=== PATIENT | female | born 1985 | race Caucasian/White ===

== ENCOUNTER 2024-08-21 05:27 | Inpatient (IN) ==
[2024-08-21] MEDS: Lactated Ringers 1000 ml BAG 1,000 ML IV ONE ×2 (05:57→20:25)
[2024-08-21 06:18] LABS: ABS Lymphocytes 2.6 10^3/uL (1.0-4.8); ABS Monocytes 0.8 10^3/uL (0.0-0.9); ABS Neutrophils 8.8 10^3/uL (1.5-7.6); Eosinophil % 0.4 %; Hematocrit 38.2 % (35-45); Hemoglobin 13.2 g/dL (11.5-14.3); Lymphocyte % 21.3 %; Mean Corpuscular Hemoglobin 32.2 pg (27-33); Mean Corpuscular Hgb Conc 34.4 g/dL (31-36); Mean Corpuscular Volume 93.5 fL (80-97); Mean Platelet Volume 8.6 fL (7.5-11.2); Platelet Count 300 10^3/uL (150-450); Red Blood Count 4.09 10^6/uL (3.63-4.92); Red Cell Distribution Width 13.9 % (12-17); White Blood Count 12.3 10^3/uL (3.8-11.8)
[2024-08-21] MEDS ORDERED: Sodium Citrate/Citric Acid LIQ 15 ML UDC PO PRN (06:57)
[2024-08-21] MEDS ORDERED: Phenylephrine 40 mcg/mL 10mL (400mcg) SYRINGE IV PUSH PRN ×2 (06:57)
[2024-08-21] MEDS: Oxytocin 10 UNITS/ML 1 ML VIAL IM ONE (09:12)
[2024-08-21] MEDS: Oxytocin in LR 20,000 MILLI.UNIT/1,000 ML BAG IV SCH (09:15)
[2024-08-21] MEDS: Lidocaine 1% VIAL 10 MG/ML 30 ML VIAL INJ PRN (09:23)
[2024-08-21] MEDS ORDERED: Glycerin ADULT 2.4 gm SUPP PR PRN (09:56)
[2024-08-21] MEDS ORDERED: Lactated Ringers 1000 ml BAG 1,000 ML IV SCH (10:00)
[2024-08-21] MEDS: Witch Hazel PAD JAR TOPICAL PRN (10:55)
[2024-08-21] MEDS: Dibucaine 1% OINT 28.35 GM TUBE PR PRN (10:55)
[2024-08-21 12:48] LABS: Urine Benzodiazepine Screen None Detected (None Detect); Urine Cannabinoids Screen None Detected (None Detect); Urine Opiates Screen None Detected (None Detect)
[2024-08-21] MEDS: Lactated Ringers 1000 ml BAG 1,000 ML IV SCH ×2 (20:25)
[2024-08-21] MEDS: Bupivacaine 0.25% SDV PF 10 ML VIAL INJ ONE (20:25)
[2024-08-21] MEDS: Lidocaine 1% VIAL 10 MG/ML 30 ML VIAL ONE (20:25)
[2024-08-21] MEDS: Oxytocin in LR 20,000 MILLI.UNIT/1,000 ML BAG IV ONE (20:25)
[2024-08-21] MEDS: Buffered Lidocaine 1% SYRIN 1 ml INTRADERM ONE (20:26)
[2024-08-22 07:10] LABS: ABS Monocytes 0.6 10^3/uL (0.0-0.9); ABS Neutrophils 8.7 10^3/uL (1.5-7.6); ABS Nucleated RBC 0.01 10^3/ul; Eosinophil % 0.4 %; Hematocrit 32.8 % (35-45); Hemoglobin 11.3 g/dL (11.5-14.3); Lymphocyte % 17.3 %; Mean Corpuscular Hemoglobin 32.5 pg (27-33); Mean Corpuscular Hgb Conc 34.4 g/dL (31-36); Mean Corpuscular Volume 94.5 fL (80-97); Mean Platelet Volume 8.4 fL (7.5-11.2); Nucleated Red Blood Cells % 0.1 %/100WBC (0.0-0.8); Platelet Count 258 10^3/uL (150-450); Red Blood Count 3.47 10^6/uL (3.63-4.92); Red Cell Distribution Width 14.1 % (12-17); White Blood Count 11.3 10^3/uL (3.8-11.8)
[2024-08-22] MEDS: Polyethylene Glycol 3350 17 GM PACKET PO PRN (17:24)
[2024-08-23 08:04] VITALS: BP 94/53
[2024-08-23] MEDS ORDERED: Varicella Virus Vaccine Live 0.5 ML VIAL SUBCUT ONE ×2 (09:00→14:00)
[2024-08-23] MEDS: Influenza Vaccine *TRI* 2024-25* 0.5 ML SYRINGE IM ONE (10:28)
[2024-08-23] MEDS ORDERED: Influenza Vaccine *TRI* 2024-25* 0.5 ML SYRINGE IM ONE (12:00)
[2024-08-23] MEDS: Varicella Virus Vaccine Live 0.5 ML VIAL SUBCUT ONE (13:30)
== END 2024-08-23 14:25 | disposition home or self-care (01) | DRG 807 ==
LOC: MCHOBOUT 05:27 → MCHOB 05:46
PROVIDERS: ADMIT Midwife; ATTEND Obstetrics & Gynecology